=== PATIENT | male | born 2000 | race Caucasian/White ===

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

== ENCOUNTER 2023-08-09 09:32 | Day surgery (SDC) | payer OTHER, SELFPAY ==
[2023-08-06 15:06] VITALS: BMI 56.0
[2023-08-09 09:47] VITALS: BP 159/93; PULSE 96; RESP 17; TEMP 37.2; O2SAT 97; BMI 56.0
[2023-08-09] MEDS: LACTATED RINGERS 1,000 ML 42 ML IV (10:25)
--- NOTE | 2023-08-09 10:52 | PM.PREOP ---
Pre-operative Note Interval Note History & Physical reviewed/Exam performed by Physician: Yes Changes to H&P: No
--- NOTE | 2023-08-09 10:52 | PM.OP.1 ---
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 Conservative measures have failed to alleviate the problem and he wished to have surgical intervention at this time. We spoke of the risks, potential complications, alternatives, and expected outcomes. Consent was signed and there are no contraindications to the procedure at this time. Surgeon: Beatriz Massey Click Yes if Unassisted: Yes Anesthesia Type: General Operative Notes Closure Type: not applicable Specimen(s): none sent Estimated Blood Loss (mL): 3 Blood products transfused: none Tourniquet time (min): 9 Procedure in detail: Patient was brought to the operating room and placed on the operative table in the supine position. Following induction of general anesthesia the recorded injectables were delivered to the patient's left great toe. The foot was prepped and draped in the usual aseptic manner. After check of anesthesia a Paul drain was placed about the left hallux which signalled start of tourniquet time. The hallux nail was removed gently in total. Lateral nail fold granulation tissue was resected sharply and cautery used on it, avoiding the nail matrix. Cautery was then discarded. The surrounding skin was protected with triple antibiotic ointment and a series of 4 applications of phenol at 30 sec each were placed in the area proximal nail fold area. Following each the area was curetted and after the last was rinsed with alcohol. The paul tourniquet was removed, a prompt hyperemic response was seen to the toe. The area was cleaned and dressed with triple antibiotic ointment, Xeroform, 4x4s, and gently placed coban. Complications: none Post-operative Condition: stable Disposition: PACU Plan for aftercare: Following a period of post operative monitoring the patient will be discharged to home on written and oral post operative instructions. He is to start his Epsom salt soaks tomorrow and has information which we previously reviewed regarding how to dress the toe and using his post op shoe. Ambulation should be temporarily reduced for the first week but ok to weight bear and walk without assistive device. He can reduce use of the xeroform after the first week or slightly longer as he heals to allow for drying of the operative site and convert when less draining to a bandaid.
[2023-08-09 12:04] VITALS: BP 156/58; PULSE 95; RESP 20; TEMP 36.1; O2SAT 93
[2023-08-09 12:09] VITALS: BP 146/93; PULSE 84; RESP 16; O2SAT 97
[2023-08-09 12:14] VITALS: BP 156/96; PULSE 84; RESP 12; O2SAT 96
[2023-08-09 12:25] VITALS: BP 154/97; PULSE 85; RESP 16; TEMP 36.1; O2SAT 96
[2023-08-09 12:45] VITALS: BP 143/82; PULSE 72; RESP 16; TEMP 36.5; O2SAT 98
== END 2023-08-09 12:55 | disposition home or self-care (01) ==
PROVIDERS: Referring Provider Podiatrist; Visit Provider Podiatrist
PROC: 0HTRXZZ Resection of Toe Nail, External Approach (ICD-10-PCS; CPT 11750; principal; 2023-08-09 11:00)
DX: L60.0 Ingrowing nail (principal); L60.3 Nail dystrophy; L03.032 Cellulitis of left toe
CPT/HCPCS: 11750; J1100; J2250; J2405; J2704; J3010

== ENCOUNTER → 2023-11-14 11:31 | Outpatient (CLI) | payer OTHER, SELFPAY ==
[2023-11-14 12:37] LABS: Influenza A - CEPHEID Flu A NEGATIVE (NEGATIVE); Influenza B - CEPHEID Flu B NEGATIVE (NEGATIVE); Respiratory Syncytial Virus Negative (Negative)
[2023-11-14 12:55] LABS: COVID-19 CEPHEID 4-PLEX PCR POSITIVE (Negative)
== END ==
PROVIDERS: Visit Provider Physician Assistant
DX: R05.1 Acute cough (principal)
CPT/HCPCS: 0241U